=== PATIENT | male | born 1955 | race Caucasian/White ===

== ENCOUNTER → 2017-07-17 | Outpatient (CLI) | payer OTHER ==
--- NOTE | 2017-07-17 16:50 | RADRPT ---
EXAM DATE/TIME: 07/17/2017 16:28 [facility] COMPARISON: No previous studies available for comparison. INDICATIONS : Pain started at approximately C-7 six weeks ago, also has pain down left side of neck and into the le ft shoulder. Denies trauma MEDICAL HISTORY : None. SURGICAL HISTORY : None. ENCOUNTER: Initial ACUITY: 1 month PAIN SCORE: 6/10 LOCATION: Bilateral cervical spine FINDINGS: There is normal alignment of the vertebral bodies of the cervical spine down to the level of T1 and p reservation of vertebral body height. Prevertebral soft tissues are normal in thickness. The insulator apprentice ior elements are in normal alignment. On the oblique views, but the neural foramen are widely patent . There is a soft tissue ossification superficial to the spinous processes of C5 and C6. No fractur es seen. The atlantoaxial articulation is intact. CONCLUSION: No evidence of compression deformity or spondylolisthesis. Dusty Sharif MD on July 17, 2017 at 16:47 Board Certified Radiologist. This report was verified electronically.
== END ==
LOC: HRAD 15:54
DX: M54.2 Cervicalgia (principal)
CPT/HCPCS: 72050

== ENCOUNTER → 2017-08-17 | Outpatient (CLI) | payer OTHER ==
--- NOTE | 2017-08-17 12:39 | RADRPT ---
EXAM DATE/TIME: 08/17/2017 12:19 [facility] COMPARISON: No previous studies available for comparison. INDICATIONS : Cough. Short of breath. Wheezing. Left chest tightness. MEDICAL HISTORY : Hypertension. Emphysema. Diabetic. Smoker. SURGICAL HISTORY : Cardiac cath w/ stent placement. ENCOUNTER: Initial ACUITY: 1 month PAIN SCORE: 0/10 LOCATION: Left chest FINDINGS: PA and lateral views of the chest demonstrates an nonspecific infiltrate in the right middle lobe. Th ere no prior studies for comparison. The left lung is clear and well-aerated. There are no pleural ef fusions or pulmonary edema. The heart size is within normal limits. The bony structures are grossly i ntact.. CONCLUSION: 1. Nonspecific infiltrate in the right middle lobe. Recommend repeat chest x-ray in 2-3 weeks after a ppropriate medical therapy to ensure resolution. If this does not resolve after appropriate medical t herapy, recommend noncontrast CT thorax for further evaluation. Tawanda Cruz MD on August 17, 2017 at 12:36 Board Certified Radiologist. This report was verified electronically.
--- NOTE | 2017-08-18 19:53 | EKG ---
Date Performed: 08/17/2017 Time Performed: 12:57:48 PTAGE: 61 years EKG: Sinus bradycardia. rSr'(V1) - probable normal variant Possible inferior infarct - age undet ermined Abnormal ECG NO PREVIOUS TRACING DOCTOR: Sebastian Sylvester Interpretating Date/Time 08/18/2017 19:51:11
== END ==
LOC: HRAD 12:04
DX: R05 Cough (principal); I25.2 Old myocardial infarction
CPT/HCPCS: 71046; 93005